=== PATIENT | female | born 1980 | race American Indian/Alaskan Native ===

== ENCOUNTER 2017-11-29 09:01 | Emergency (ER) | payer OTHER ==
[2017-11-29 09:13] VITALS: BP 119/80
[2017-11-29] MEDS ORDERED: NORCO 7.5/325 PO ONE (10:53)
[2017-11-29] MEDS ORDERED: NORCO 7.5/325 ONE (10:53)
[2017-11-29] MEDS ORDERED: MOTRIN PO ONE (10:53)
--- NOTE | 2017-11-29 10:55 | Emergency Department Report ---
Blank Doc - Documentation Documentation: Patient is a 37-year-old black female who states that she woke up yesterday morning with swelling to her right wrist. Patient state that area is reddened and swollen and painful. Patient states the pain is worse when she tries to move her wrist. Patient denies any trauma and does not remember injuring herself does not remember being bitten by any insects. Brief physical exam there is some erythema and swelling to the radial side of the wrist. Patient is in obvious discomfort. X-ray was taken to rule out any underlying fracture. There is no fracture this may represent early cellulitis.
--- NOTE | 2017-11-29 11:16 | XRay Report ---
Right wrist 3 views: History: Swelling. Findings: No bony or articular abnormality. No fracture or dislocation or soft tissue calcification. Impression: Essentially negative right wrist.
--- NOTE | 2017-11-29 11:52 | Emergency Department Report ---
Upper Extremity - HPI Chief Complaint: Extremity Problem,Nontraumatic Stated Complaint: RIGHT HAND PAIN Time Seen by Provider: 11/29/17 10:20 Upper Extremity: Right Wrist Occurred When: 1 Day Mechanism: Unsure Severity: moderate Symptoms: Yes Pain with Movement, Yes Swelling Other History: Patient is a 37-year-old black female who states that she woke up yesterday morning with swelling to her right wrist. Patient state that area is reddened and swollen and painful. Patient states the pain is worse when she tries to move her wrist. Patient denies any trauma and does not remember injuring herself does not remember being bitten by any insects. Brief physical exam there is some erythema and swelling to the radial side of the wrist. Patient is in obvious discomfort. ED Review of Systems ROS: Stated complaint: RIGHT HAND PAIN Other details as noted in HPI Comment: All other systems reviewed and negative Constitutional: fever Musculoskeletal: joint swelling, arthralgia ED Past Medical Hx - Past Medical History Previous Medical History?: No - Surgical History Past Surgical History?: No - Social History Smoking Status: Current Every Day Smoker Substance Use Type: None - Medications Home Medications: Home Medications Medication Instructions Recorded Confirmed Last Taken Type Ibuprofen [Motrin 800 MG tab] 800 mg PO Q8HR PRN #30 tablet 11/29/17 Unknown Rx Upper Extremity Exam - Exam General: Vital signs noted. No distress. Alert and acting appropriately. Head and Torso: No HEENT Abnormality, No Neck Tenderness, No Chest/Lungs Abnormality, No Abdominal Tenderness, No Back Tenderness Shoulder Exam: Yes Normal Range of Motion in Shoulder, No Shoulder Tenderness, No Clavicle Tenderness, No Shoulder Deformity, No AC Joint Tenderness Arm Exam: No Arm/Humerus Tenderness, No Arm Deformity Elbow: No Elbow Tenderness, No Normal Range of Motion in Elbow, No Elbow Deformity Wrist: Yes Wrist Tenderness, Yes Normal ROM in Wrist, No Wrist Deformity, No Snuffbox Tenderness, No Pain with Axial Thumb Compression Hand: Yes Hand Tenderness, Yes Normal ROM in Digit(s), No Hand Deformity, No Digit Tenderness, No Digit(s) Deformity, No Tendon Dysfunction CMS Exam: Yes Normal Distal Pulses, Yes Normal Capillary Refill, Yes Normal Distal Sensation, No Broken Skin ED Course Vital Signs 11/29/17 11/29/17 11/29/17 09:08 10:58 10:59 Temperature 98.6 F Pulse Rate 74 Respiratory 16 18 18 Rate Blood Pressure 119/80 O2 Sat by Pulse 100 Oximetry 11/29/17 11:08 Temperature Pulse Rate Respiratory 18 Rate Blood Pressure O2 Sat by Pulse Oximetry ED Medical Decision Making - Radiology Data Radiology results: report reviewed, image reviewed Right wrist 3 views: History: Swelling. Findings: No bony or articular abnormality. No fracture or dislocation or soft tissue calcification. Impression: Essentially negative right wrist. Transcribed By: PTP Dictated By: ELISSA MARAVILLA MD Electronically Authenticated By: ELISSA MARAVILLA MD Signed Date/Time: 11/29/17 105 DD/ 53 TD/TT: 11/29/17 1055 - Medical Decision Making Assessment evaluated up at this provider fast track. I discussed the patient that her x-rays were negative. Discussed the patient that she most likely sprained it. She reports that the ibuprofen and [place] has work with her pain. I discussed the patient a place her in a splint for her wrists. Discussed for her to wear it when necessary for comfort she should take ibuprofen 800 mg every 8 hours for the first 2 days and then as needed. Discussed the patient is symptoms do not improve or gets worse that she should follow-up with the orthopedic I will lists several below for her. Patient verbalized understanding. Critical care attestation.: If time is entered above; I have spent that time in minutes in the direct care of this critically ill patient, excluding procedure time. ED Disposition Clinical Impression: Right wrist pain Disposition: DC-01 TO HOME OR SELFCARE Is pt being admited?: No Does the pt Need Aspirin: No Condition: Stable Instructions: Tendinitis (ED), Arthralgia (ED) Additional Instructions: Please take ibuprofen as prescribed. Please eat and drink plenty of fluids while taking ibuprofen. If symptoms persist or gets worse please follow-up with orthopedist I have listed several below. Prescriptions: Ibuprofen [Motrin 800 MG tab] 800 mg PO Q8HR PRN #30 tablet PRN Reason: Pain Referrals: CORI GAGE MD [Staff Physician] - 3-5 Days ALANNA PUTNAM MD [Staff Physician] - 3-5 Days Forms: Work/School Release Form(ED), Accompanied Note
== END 2017-11-29 12:25 | disposition home or self-care (01) ==
LOC: ED 09:01
DX: M25.531 Pain in right wrist (principal); F17.200 Nicotine dependence, unspecified, uncomplicated